=== PATIENT | male | born 1935 | race Caucasian/White ===

== ENCOUNTER 2022-08-10 14:04 | Inpatient (IN) | payer OTHER ==
[~2022-08-10] VITALS: Ht 177.8 cm; Wt 78.0 kg
[2022-08-10] MEDS ORDERED: OLANZAPINE 10 MG/VIAL IM ONE (15:30)
[2022-08-10 17:03] LABS: HEMATOCRIT. 31.1 % (42.0-52.0); HEMOGLOBIN. 10.4 g/dL (14.0-18.0); MEAN CORPUSCULAR HEMOGLOBIN 31.4 pg (28.0-32.0); MEAN CORPUSCULAR VOLUME 93.8 fL (80.0-94.0); MEAN PLATELET VOLUME 7.4 fl (7.4-10.4); PLATELET 343 x1000/uL (130-400); RED BLOOD CELL COUNT 3.32 mill/uL (4.7-6.1); RED CELL DISTRIBUTION WIDTH 16.7 % (11.6-14.6)
[2022-08-10 17:10] LABS: CHLORIDE 96 mEq/L (98-107)
[2022-08-10 17:12] LABS: PROTHROMBIN TIME 10.9 sec (9.6-11.0)
[2022-08-10 17:43] LABS: PLATELET ESTIMATE NORMAL
[2022-08-10 19:54] LABS: CLARITY URINE CLEAR (CLEAR); COLOR URINE YELLOW (YELLOW); KETONES URINE NEGATIVE (NEGATIVE); LEUKOCYTE ESTERASE URINE NEGATIVE (NEGATIVE); NITRITE URINE NEGATIVE (NEGATIVE); OCCULT BLOOD URINE 1+ (NEGATIVE); PROTEIN URINE NEGATIVE (NEGATIVE); SPECIFIC GRAVITY URINE 1.005 (1.005-1.030); UROBILINOGEN URINE 0.2 E.U./dL (0.2-1.0)
[2022-08-10 19:56] LABS: CREATINE KINASE 199 IU/L (39-308)
[2022-08-10] MEDS ORDERED: ASPIRIN 325MG TABLET PO NR (23:30)
[2022-08-11 01:05] VITALS: BP 175/94
[2022-08-11] MEDS ORDERED: INFLUENZA VACCINE 05/PF 0.5 ML SYRINGE IM ONE (03:15)
[2022-08-11 04:00] VITALS: BP 162/81
[2022-08-11] MEDS ORDERED: ACETAMINOPHEN 325MG TABLET PO PRN (05:15)
[2022-08-11] MEDS: CLONIDINE 0.1MG TABLET PO PRN (05:23)
[2022-08-11 08:00] VITALS: BP 99/56
[2022-08-11] MEDS ORDERED: MULTIVITAMINS,THER W-MINERALS TABLET PO SCH (09:00)
[2022-08-11] MEDS ORDERED: METOPROLOL TARTRATE 50MG TABLET PO SCH (09:00)
[2022-08-11] MEDS: FOLIC ACID 1MG TABLET PO SCH (09:34)
[2022-08-11] MEDS: ENOXAPARIN 30MG/0.3ML SYR SUBCUT SCH (09:34)
[2022-08-11] MEDS: THIAMINE HCL 100MG TABLET PO SCH (09:34)
[2022-08-11 12:00] VITALS: BP 92/59
[2022-08-11] MEDS: SODIUM CHLORIDE 0.9% 1,000 ML IV SCH ×2 (13:58→22:01)
[2022-08-11 16:00] VITALS: BP 99/47
[2022-08-11] MEDS: PANTOPRAZOLE SODIUM 40 MG/VIAL IV SCH (16:01)
[2022-08-11 20:00] VITALS: BP 93/57
[2022-08-12] VITALS: BP 137/69
[2022-08-12 04:00] VITALS: BP 149/69
[2022-08-12 08:00] VITALS: BP 146/67
[2022-08-12 08:21] LABS: HEMATOCRIT. 27.7 % (42.0-52.0); HEMOGLOBIN. 9.4 g/dL (14.0-18.0); MEAN CORPUSCULAR VOLUME 94.7 fL (80.0-94.0); MEAN PLATELET VOLUME 7.6 fl (7.4-10.4); PLATELET 316 x1000/uL (130-400); RED BLOOD CELL COUNT 2.93 mill/uL (4.7-6.1); RED CELL DISTRIBUTION WIDTH 16.6 % (11.6-14.6)
[2022-08-12 08:42] LABS: CHLORIDE 99 mEq/L (98-107)
[2022-08-12] MEDS: PANTOPRAZOLE SODIUM 40 MG/VIAL IV SCH (09:06)
[2022-08-12] MEDS: FOLIC ACID 1MG TABLET PO SCH (09:06)
[2022-08-12] MEDS: THIAMINE HCL 100MG TABLET PO SCH (09:06)
[2022-08-12] MEDS: ENOXAPARIN 30MG/0.3ML SYR SUBCUT SCH (09:21)
[2022-08-12 10:14] LABS: PLATELET ESTIMATE NORMAL
[2022-08-12 10:37] LABS: VITAMIN B12 SERUM 545 pg/mL (211-911)
[2022-08-12 12:00] VITALS: BP 145/62
[2022-08-12 16:15] VITALS: BP_SYST 166; BP_DIAS 70; BP_DIAS 82
[2022-08-12] MEDS ORDERED: POTASSIUM CHLORIDE 20MEQ TABLET SR PO NR (16:45)
[2022-08-12] MEDS: SODIUM CHLORIDE 0.9% 1,000 ML IV SCH (17:00)
[2022-08-12 20:00] VITALS: BP 174/75
[2022-08-12] MEDS: CLONIDINE 0.1MG TABLET PO PRN (20:44)
[2022-08-13] VITALS: BP 159/71
[2022-08-13] MEDS: SODIUM CHLORIDE 0.9% 1,000 ML IV SCH ×2 (03:33→14:24)
[2022-08-13 04:00] VITALS: BP 127/58
[2022-08-13 07:08] LABS: HEMOGLOBIN. 7.6 g/dL (14.0-18.0); MEAN CORPUSCULAR HEMOGLOBIN 32.1 pg (28.0-32.0); MEAN CORPUSCULAR VOLUME 93.3 fL (80.0-94.0); MEAN PLATELET VOLUME 7.6 fl (7.4-10.4); PLATELET 286 x1000/uL (130-400); RED BLOOD CELL COUNT 2.36 mill/uL (4.7-6.1); RED CELL DISTRIBUTION WIDTH 16.3 % (11.6-14.6)
[2022-08-13 07:46] LABS: CHLORIDE 101 mEq/L (98-107)
[2022-08-13 08:00] VITALS: BP_SYST 114; BP_SYST 124; BP_SYST 152; BP_DIAS 58; BP_DIAS 60; BP_DIAS 74
[2022-08-13] MEDS: PANTOPRAZOLE SODIUM 40 MG/VIAL IV SCH (08:56)
[2022-08-13] MEDS: THIAMINE HCL 100MG TABLET PO SCH (08:56)
[2022-08-13] MEDS: FOLIC ACID 1MG TABLET PO SCH (08:56)
[2022-08-13] MEDS: ENOXAPARIN 30MG/0.3ML SYR SUBCUT SCH (08:57)
[2022-08-13 09:50] LABS: PLATELET ESTIMATE NORMAL
[2022-08-13 12:30] VITALS: BP 156/70
[2022-08-13] MEDS ORDERED: BISACODYL 5MG TABLET PO SCH (13:00)
[2022-08-13] MEDS: POLYETHYLENE GLYCOL 3350 (17GM) 1 DOSE PACK PO SCH (13:26)
[2022-08-13 16:00] VITALS: BP 158/68
[2022-08-13 16:13] LABS: TOTAL IRON BINDING CAPACITY 175 ug/dL (250-450)
[2022-08-13 16:30] LABS: FERRITIN 164 ng/mL (22-322)
[2022-08-13 16:41] LABS: HEPATITIS B SURFACE ANTIGEN NEGATIVE
[2022-08-13 20:00] VITALS: BP 159/79
[2022-08-13] MEDS: SENNOSIDES/DOCUSATE SOD 8.6/50MG TABLET PO SCH (20:54)
[2022-08-14] VITALS: BP 155/77
[2022-08-14] MEDS: SODIUM CHLORIDE 0.9% 1,000 ML IV SCH ×3 (02:03→21:25)
[2022-08-14] MEDS: CLONIDINE 0.1MG TABLET PO PRN (03:53)
[2022-08-14 04:00] VITALS: BP 168/78
[2022-08-14 08:07] LABS: CHLORIDE 99 mEq/L (98-107)
[2022-08-14 08:10] LABS: BASOPHILS % 0.8 % (0.0-2.0); EOSINOPHILS % 1.3 % (0.0-5.0); HEMATOCRIT. 24.3 % (42.0-52.0); HEMOGLOBIN. 8.3 g/dL (14.0-18.0); LYMPHOCYTES % 14.3 % (20.0-50.0); MEAN CORPUSCULAR HEMOGLOBIN 32.2 pg (28.0-32.0); MEAN CORPUSCULAR VOLUME 94.2 fL (80.0-94.0); MONOCYTES % 13.1 % (2.0-8.0); NEUTROPHILS % 70.5 % (40.0-76.0); PLATELET 289 x1000/uL (130-400); RED BLOOD CELL COUNT 2.58 mill/uL (4.7-6.1)
[2022-08-14 08:15] VITALS: BP_SYST 106; BP_SYST 116; BP_DIAS 51; BP_DIAS 56
[2022-08-14] MEDS ORDERED: POLYETHYLENE GLYCOL 3350 (17GM) 1 DOSE PACK PO SCH (09:00)
[2022-08-14] MEDS: POLYETHYLENE GLYCOL 3350 (17GM) 1 DOSE PACK PO SCH (10:13)
[2022-08-14] MEDS: PANTOPRAZOLE SODIUM 40 MG/VIAL IV SCH (10:13)
[2022-08-14] MEDS: FOLIC ACID 1MG TABLET PO SCH (10:13)
[2022-08-14] MEDS: THIAMINE HCL 100MG TABLET PO SCH (10:13)
[2022-08-14] MEDS: ENOXAPARIN 30MG/0.3ML SYR SUBCUT SCH (10:13)
[2022-08-14 12:39] VITALS: BP 146/69
[2022-08-14 15:53] VITALS: BP 151/66
[2022-08-14] MEDS ORDERED: MAGNESIUM 4 G PREMIX 100 ML IV NR (16:30)
[2022-08-14 20:00] VITALS: BP 139/60
[2022-08-14] MEDS: SENNOSIDES/DOCUSATE SOD 8.6/50MG TABLET PO SCH (21:25)
[2022-08-15] VITALS: BP 144/70
[2022-08-15 04:00] VITALS: BP 167/73
[2022-08-15] MEDS: CLONIDINE 0.1MG TABLET PO PRN (05:57)
[2022-08-15] MEDS: SODIUM CHLORIDE 0.9% 1,000 ML IV SCH ×3 (05:57→21:11)
[2022-08-15 08:00] VITALS: BP 144/69
[2022-08-15] MEDS: MULTIVITAMINS,THER W-MINERALS TABLET PO SCH (09:15)
[2022-08-15] MEDS: TAMSULOSIN HCL 0.4MG SR CAPSULE PO SCH (09:15)
[2022-08-15] MEDS: MAGNESIUM OXIDE 400MG TABLET PO SCH (09:15)
[2022-08-15] MEDS: FOLIC ACID 1MG TABLET PO SCH (09:16)
[2022-08-15] MEDS: PANTOPRAZOLE SODIUM 40 MG/VIAL IV SCH (09:16)
[2022-08-15] MEDS: THIAMINE HCL 100MG TABLET PO SCH (09:16)
[2022-08-15] MEDS: POLYETHYLENE GLYCOL 3350 (17GM) 1 DOSE PACK PO SCH (09:17)
[2022-08-15 10:38] LABS: BASOPHILS % 0.4 % (0.0-2.0); EOSINOPHILS % 2.3 % (0.0-5.0); HEMATOCRIT. 26.9 % (42.0-52.0); LYMPHOCYTES % 11.7 % (20.0-50.0); MEAN CORPUSCULAR HEMOGLOBIN 31.9 pg (28.0-32.0); MEAN PLATELET VOLUME 7.8 fl (7.4-10.4); MONOCYTES % 11.8 % (2.0-8.0); NEUTROPHILS % 73.8 % (40.0-76.0); PLATELET 342 x1000/uL (130-400); RED BLOOD CELL COUNT 2.83 mill/uL (4.7-6.1); RED CELL DISTRIBUTION WIDTH 16.1 % (11.6-14.6)
[2022-08-15 11:05] LABS: CHLORIDE 97 mEq/L (98-107)
[2022-08-15 12:00] VITALS: BP_SYST 101; BP_SYST 115; BP_SYST 123; BP_DIAS 46; BP_DIAS 50; BP_DIAS 60
[2022-08-15] MEDS ORDERED: FOLI-43 PO (13:11)
[2022-08-15] MEDS ORDERED: TAMS-11 PO (13:11)
[2022-08-15 16:00] VITALS: BP 123/58
[2022-08-15 20:00] VITALS: BP 138/60
[2022-08-15] MEDS: SENNOSIDES/DOCUSATE SOD 8.6/50MG TABLET PO SCH (21:10)
[2022-08-15] MEDS: FAMOTIDINE 20MG/2ML VIAL IV SCH (21:10)
[2022-08-16] VITALS: BP 132/54
[2022-08-16 07:49] LABS: HEMATOCRIT. 23.2 % (42.0-52.0); HEMOGLOBIN. 7.9 g/dL (14.0-18.0); MEAN CORPUSCULAR HEMOGLOBIN 32.2 pg (28.0-32.0); MEAN CORPUSCULAR VOLUME 94.6 fL (80.0-94.0); MEAN PLATELET VOLUME 7.5 fl (7.4-10.4); PLATELET 328 x1000/uL (130-400); RED BLOOD CELL COUNT 2.45 mill/uL (4.7-6.1); RED CELL DISTRIBUTION WIDTH 15.9 % (11.6-14.6)
[2022-08-16 08:00] VITALS: BP 148/63
[2022-08-16] MEDS ORDERED: MAGNESIUM OXIDE 400MG TABLET PO SCH (09:00)
[2022-08-16 09:05] LABS: CHLORIDE 98 mEq/L (98-107)
[2022-08-16] MEDS: FAMOTIDINE 20MG/2ML VIAL IV SCH ×2 (09:09→21:49)
[2022-08-16] MEDS: POLYETHYLENE GLYCOL 3350 (17GM) 1 DOSE PACK PO SCH (09:09)
[2022-08-16] MEDS: MULTIVITAMINS,THER W-MINERALS TABLET PO SCH (09:09)
[2022-08-16] MEDS: TAMSULOSIN HCL 0.4MG SR CAPSULE PO SCH (09:09)
[2022-08-16] MEDS: FOLIC ACID 1MG TABLET PO SCH (09:09)
[2022-08-16] MEDS: THIAMINE HCL 100MG TABLET PO SCH (09:09)
[2022-08-16] MEDS: MAGNESIUM OXIDE 400MG TABLET PO SCH (09:09)
[2022-08-16] MEDS: SODIUM CHLORIDE 0.9% 1,000 ML IV SCH ×2 (09:10→21:49)
[2022-08-16 10:49] LABS: PLATELET ESTIMATE NORMAL
[2022-08-16 12:00] VITALS: BP_SYST 126; BP_SYST 83; BP_SYST 93; BP_DIAS 41; BP_DIAS 50; BP_DIAS 57
[2022-08-16 16:00] VITALS: BP 128/62
[2022-08-16 20:00] VITALS: BP 130/61
[2022-08-16] MEDS: SENNOSIDES/DOCUSATE SOD 8.6/50MG TABLET PO SCH (21:49)
[2022-08-17] VITALS (7 sets, daily range): BP systolic 128–179; BP diastolic 58–71
[2022-08-17 07:10] LABS: HEMATOCRIT. 23.4 % (42.0-52.0); MEAN CORPUSCULAR HEMOGLOBIN 32.4 pg (28.0-32.0); MEAN CORPUSCULAR VOLUME 94.5 fL (80.0-94.0); MEAN PLATELET VOLUME 7.6 fl (7.4-10.4); PLATELET 339 x1000/uL (130-400); RED BLOOD CELL COUNT 2.47 mill/uL (4.7-6.1); RED CELL DISTRIBUTION WIDTH 15.5 % (11.6-14.6)
[2022-08-17] MEDS: MULTIVITAMINS,THER W-MINERALS TABLET PO SCH (10:35)
[2022-08-17] MEDS: SODIUM CHLORIDE 0.9% 1,000 ML IV SCH ×3 (10:35→21:22)
[2022-08-17] MEDS: MAGNESIUM OXIDE 400MG TABLET PO SCH (10:36)
[2022-08-17] MEDS: THIAMINE HCL 100MG TABLET PO SCH (10:36)
[2022-08-17] MEDS: TAMSULOSIN HCL 0.4MG SR CAPSULE PO SCH (10:36)
[2022-08-17] MEDS: FAMOTIDINE 20MG/2ML VIAL IV SCH ×2 (10:36→21:22)
[2022-08-17] MEDS: FOLIC ACID 1MG TABLET PO SCH (10:36)
[2022-08-17] MEDS: POLYETHYLENE GLYCOL 3350 (17GM) 1 DOSE PACK PO SCH (10:36)
[2022-08-17 11:32] LABS: PLATELET ESTIMATE NORMAL
[2022-08-17 13:39] LABS: CHLORIDE 94 mEq/L (98-107)
[2022-08-17] MEDS: SENNOSIDES/DOCUSATE SOD 8.6/50MG TABLET PO SCH (21:00)
[2022-08-18] VITALS (8 sets, daily range): BP systolic 130–152; BP diastolic 57–74
[2022-08-18 07:25] LABS: HEMOGLOBIN. 7.5 g/dL (14.0-18.0); MEAN CORPUSCULAR HEMOGLOBIN 32.1 pg (28.0-32.0); MEAN CORPUSCULAR VOLUME 94.8 fL (80.0-94.0); MEAN PLATELET VOLUME 7.3 fl (7.4-10.4); PLATELET 354 x1000/uL (130-400); RED BLOOD CELL COUNT 2.32 mill/uL (4.7-6.1); RED CELL DISTRIBUTION WIDTH 15.6 % (11.6-14.6)
[2022-08-18 08:43] LABS: CHLORIDE 98 mEq/L (98-107)
[2022-08-18] MEDS: POLYETHYLENE GLYCOL 3350 (17GM) 1 DOSE PACK PO SCH (09:00)
[2022-08-18] MEDS: MAGNESIUM OXIDE 400MG TABLET PO SCH (09:57)
[2022-08-18] MEDS: THIAMINE HCL 100MG TABLET PO SCH (09:57)
[2022-08-18] MEDS: MULTIVITAMINS,THER W-MINERALS TABLET PO SCH (09:57)
[2022-08-18] MEDS: FAMOTIDINE 20MG/2ML VIAL IV SCH ×2 (09:57→20:10)
[2022-08-18] MEDS: FOLIC ACID 1MG TABLET PO SCH (09:57)
[2022-08-18] MEDS: TAMSULOSIN HCL 0.4MG SR CAPSULE PO SCH (10:01)
[2022-08-18 11:47] LABS: PLATELET ESTIMATE NORMAL
[2022-08-18] MEDS: SODIUM CHLORIDE 0.9% 1,000 ML IV SCH (15:14)
[2022-08-18] MEDS: SENNOSIDES/DOCUSATE SOD 8.6/50MG TABLET PO SCH (20:10)
== END 2022-08-18 21:43 | disposition home or self-care (01) | DRG 640 ==
LOC: ER 14:50 → EDBEDREQTM 22:40 → EDBEDREQ 22:40 → MICUSO 23:25 → 6WST 08-11 01:05
PROVIDERS: ADMIT Internal Medicine; ATTEND Internal Medicine
PROC: 4A00X4Z Measurement of Central Nervous Electrical Activity, External Approach (ICD-10-PCS; principal; 2022-08-12)
DX: E87.1 Hypo-osmolality and hyponatremia (principal); G93.41 Metabolic encephalopathy; E44.1 Mild protein-calorie malnutrition; F03.90 Unspecified dementia, unspecified severity, without behavioral disturbance, psychotic disturbance, mood disturbance, and anxiety; E83.42 Hypomagnesemia; D64.9 Anemia, unspecified; I10 Essential (primary) hypertension; I95.9 Hypotension, unspecified; N40.0 Benign prostatic hyperplasia without lower urinary tract symptoms; I34.0 Nonrheumatic mitral (valve) insufficiency; Z90.49 Acquired absence of other specified parts of digestive tract; Z87.891 Personal history of nicotine dependence; Z85.038 Personal history of other malignant neoplasm of large intestine; Z85.46 Personal history of malignant neoplasm of prostate; Z68.24 Body mass index [BMI] 24.0-24.9, adult
CPT/HCPCS: 36415; 70551; 71045; 80048; 80053; 81003; 82140; 82270; 82378; 82550; 82607; 82728; 82746; 83540; 83550; 83735; 84145; 84443; 84484; 85025; 85044; 86705; 86709; 86803; 86850; 86900; 87340; 93005; 93306; 93970; 95816; 97162; 97166; 99291; C1893; C9113; J1650; J3475; J3490; J7030; A4315

== ENCOUNTER 2024-09-21 09:17 | Emergency (ER) | payer MEDICARE, OTHER ==
[~2024-09-21] VITALS: Ht 177.8 cm; Wt 75.0 kg
[~2024-09-21 09:17] MED LIST: FOLI-43 PO; TAMS-11 PO
[2024-09-21 09:27] VITALS: O2SAT 100
[2024-09-21 11:51] LABS: HEMATOCRIT. 23.9 % (42.0-52.0); HEMOGLOBIN. 7.3 g/dL (14.0-18.0); MEAN CORPUSCULAR HEMOGLOBIN 28.7 pg (28.0-32.0); MEAN CORPUSCULAR HGB CONC 30.7 g/dL (31.0-37.0); MEAN CORPUSCULAR VOLUME 93.7 fL (80.0-94.0); MEAN PLATELET VOLUME 7.4 fl (7.4-10.4); PLATELET 261 x1000/uL (130-400); RED BLOOD CELL COUNT 2.56 mill/uL (4.7-6.1); RED CELL DISTRIBUTION WIDTH 16.5 % (11.6-14.6); WHITE BLOOD COUNT 4.6 x1000/uL (4.5-11.0)
[2024-09-21 11:53] LABS: DIFFERENTIAL COMMENT 1
[2024-09-21 11:59] LABS: CHLORIDE 104 mEq/L (98-107); POTASSIUM 4.4 mEq/L (3.5-5.1); SODIUM 135 mEq/L (136-145)
[2024-09-21 12:00] LABS: CALCIUM 8.8 mg/dL (8.7-10.4); CARBON DIOXIDE 22 mEq/L (21-32)
[2024-09-21 12:05] LABS: CREATININE 1.1 mg/dL (0.6-1.3); GLUCOSE 102 mg/dL (70-105); UREA NITROGEN BLOOD 16 mg/dL (9-23)
[2024-09-21 12:23] VITALS: BP 150/87; PULSE 72; RESP 18; TEMP 36.50292; O2SAT 100
[2024-09-21 13:02] LABS: PLATELET ESTIMATE NORMAL
[2024-09-21 13:03] LABS: ANISOCYTOSIS 1+
== END 2024-09-21 12:23 | disposition home or self-care (01) ==
LOC: ER 09:17
DX: R33.9 Retention of urine, unspecified (principal); I10 Essential (primary) hypertension; E78.00 Pure hypercholesterolemia, unspecified; Z98.890 Other specified postprocedural states
CPT/HCPCS: 36415; 51702; 80048; 85025; 99284